=== PATIENT | female | born 1985 | race Caucasian/White ===

== ENCOUNTER 2016-11-18 20:59 | Emergency (ER) | payer SELFPAY ==
[~2016-11-18] VITALS: Ht 165.1 cm; Wt 63.5 kg
--- NOTE | 2016-11-18 21:11 | NUR ---
[facility] INTO INTERVIEW PATIENT
[2016-11-18] MEDS ORDERED: AMPH15TA2 PO (21:29)
[2016-11-18 23:27] LABS: *URINE HCG, QUAL NEGATIVE (NEGATIVE)
[2016-11-19] MEDS: IBUPROFEN 800 MG TABLET PO ONE (01:07)
[2016-11-19] MEDS ORDERED: IBUPROFEN 800 MG TABLET ONE (01:12)
--- NOTE | 2016-11-19 01:12 | NUR ---
Patient states that she does not want to wait for CD image. Education provided regarding obtaining CD at later time.
--- NOTE | 2016-11-19 01:14 | NUR ---
Patient discharged to home in stable conditon. Written and verbal after care instructions given. Patient verbalizes understanding of instructions.
== END 2016-11-19 01:15 | disposition home or self-care (01) ==
LOC: ER 21:03
DX: S06.0X0A Concussion without loss of consciousness, initial encounter (principal); S62.101A Fracture of unspecified carpal bone, right wrist, initial encounter for closed fracture; V43.52XA Car driver injured in collision with other type car in traffic accident, initial encounter; W22.10XA Striking against or struck by unspecified automobile airbag, initial encounter; Y93.89 Activity, other specified; Y99.8 Other external cause status; Y92.89 Other specified places as the place of occurrence of the external cause
CPT/HCPCS: 73110; 84703; A4663